=== PATIENT | male | born 1965 | race African-American/Black ===

== ENCOUNTER 2022-05-28 09:31 | Inpatient (IN) | payer MEDICAID ==
[~2022-05-28] VITALS: Ht 182.9 cm; Wt 65.8 kg
[2022-05-28] MEDS ORDERED: DICYCLOMINE 10 MG/5 ML ORAL SYR PO STA (11:11)
[2022-05-28] MEDS ORDERED: ONDANSETRON HCL 4MG/2ML INJ IV STA (11:11)
[2022-05-28] MEDS ORDERED: KETOROLAC 30MG/ML VIAL IV STA (11:11)
[2022-05-28] MEDS ORDERED: VISCOUS LIDOCAINE 2% 15 ML UDC PO STA (11:11)
[2022-05-28] MEDS ORDERED: MAGNESIUM/ALUMINUM HYDROXIDE/SIMETHICONE 30ML UDC PO STA (11:11)
[2022-05-28] MEDS ORDERED: HYDRALAZINE 20MG/ML VIAL IV ONE (14:15)
[2022-05-28] MEDS: SUCRALFATE 1G TABLET PO SCH ×3 (14:29→21:49)
[2022-05-28 14:30] LABS: HEMATOCRIT. 40.3 % (42.0-52.0); HEMOGLOBIN. 13.9 g/dL (14.0-18.0); MEAN CORPUSCULAR HEMOGLOBIN 31.9 pg (28.0-32.0); MEAN CORPUSCULAR VOLUME 92.7 fL (80.0-94.0); MEAN PLATELET VOLUME 8.5 fl (7.4-10.4); PLATELET 199 x1000/uL (130-400); RED BLOOD CELL COUNT 4.34 mill/uL (4.7-6.1); RED CELL DISTRIBUTION WIDTH 13.7 % (11.6-14.6)
[2022-05-28 14:38] LABS: CHLORIDE 107 mEq/L (98-107)
[2022-05-28 15:03] LABS: PLATELET ESTIMATE NORMAL
[2022-05-28 16:28] LABS: CLARITY URINE CLEAR (CLEAR); COLOR URINE YELLOW (YELLOW); KETONES URINE 1+ (NEGATIVE); LEUKOCYTE ESTERASE URINE NEGATIVE (NEGATIVE); NITRITE URINE NEGATIVE (NEGATIVE); OCCULT BLOOD URINE NEGATIVE (NEGATIVE); PH URINE 8.5 (4.5-8.0); PROTEIN URINE TRACE (NEGATIVE); SPECIFIC GRAVITY URINE 1.023 (1.005-1.030)
[2022-05-28] MEDS ORDERED: CLONIDINE 0.1MG TABLET PO PRN (23:15)
[2022-05-28] MEDS ORDERED: ONDANSETRON HCL 4MG/2ML INJ IV PRN (23:15)
[2022-05-28] MEDS ORDERED: ACETAMINOPHEN 325MG TABLET PO PRN (23:15)
[2022-05-28] MEDS ORDERED: DIPHENHYDRAMINE 50MG/ML VIAL IV PRN (23:15)
[2022-05-28] MEDS ORDERED: IPRATROPIUM/ALBUTEROL 0.5-3(2.5)MG/3ML NEB HHN PRN (23:15)
[2022-05-29] VITALS: BP 124/77
[2022-05-29] MEDS: SODIUM CHLORIDE 0.9% 1,000 ML IV SCH ×2 (00:02→14:37)
[2022-05-29] MEDS: KETOROLAC 15MG/ML VIAL IV PRN ×2 (00:03→18:37)
[2022-05-29 01:06] VITALS: BP 149/98
[2022-05-29] MEDS: SUCRALFATE 1G TABLET PO SCH ×4 (06:22→21:58)
[2022-05-29 06:44] LABS: BASOPHILS % 0.6 % (0.0-2.0); EOSINOPHILS % 0.5 % (0.0-5.0); HEMATOCRIT. 38.2 % (42.0-52.0); HEMOGLOBIN. 13.1 g/dL (14.0-18.0); LYMPHOCYTES % 30.1 % (20.0-50.0); MEAN CORPUSCULAR HEMOGLOBIN 32.1 pg (28.0-32.0); MEAN CORPUSCULAR VOLUME 93.3 fL (80.0-94.0); MEAN PLATELET VOLUME 8.6 fl (7.4-10.4); MONOCYTES % 10.8 % (2.0-8.0); PLATELET 186 x1000/uL (130-400); RED CELL DISTRIBUTION WIDTH 13.9 % (11.6-14.6)
[2022-05-29 06:58] LABS: CHLORIDE 104 mEq/L (98-107)
[2022-05-29] MEDS ORDERED: MIRT-118 MT (07:46)
[2022-05-29] MEDS ORDERED: ARIP2TAB3 MT (07:46)
[2022-05-29] MEDS ORDERED: TIMO5DRO32 EACHEYE (07:46)
[2022-05-29] MEDS ORDERED: HYDR25TA MT (07:46)
[2022-05-29 08:00] VITALS: BP 134/85
[2022-05-29 12:00] VITALS: BP 145/90
[2022-05-29 16:00] VITALS: BP 166/96
[2022-05-29 20:00] VITALS: BP 145/88
[2022-05-30] VITALS: BP 133/75
[2022-05-30] MEDS: SODIUM CHLORIDE 0.9% 1,000 ML IV SCH (01:29)
[2022-05-30] MEDS: KETOROLAC 15MG/ML VIAL IV PRN (01:33)
[2022-05-30] MEDS: SUCRALFATE 1G TABLET PO SCH ×2 (06:48→12:09)
[2022-05-30] MEDS ORDERED: POTASSIUM CHLORIDE 20MEQ TABLET SR PO NR (11:15)
[2022-05-30] MEDS ORDERED: SUCR1TAB MT (13:10)
[2022-05-30] MEDS ORDERED: HYDR25TA MT (13:10)
[2022-05-30] MEDS ORDERED: AMLO10TA80 MT (13:10)
[2022-05-30] MEDS ORDERED: ONDA4TAB50 MT (13:10)
[2022-05-30 13:24] VITALS: BP 129/76
== END 2022-05-30 13:37 | disposition home or self-care (01) | DRG 249 ==
LOC: ER 09:31 → 6EST 21:32 → ENRESERV 22:57 → 6EST 05-29 11:37
PROVIDERS: ADMIT Family Medicine Adult Medicine; ATTEND Family Medicine Adult Medicine
DX: R11.2 Nausea with vomiting, unspecified (principal); E11.9 Type 2 diabetes mellitus without complications; F12.90 Cannabis use, unspecified, uncomplicated; E87.6 Hypokalemia; F17.210 Nicotine dependence, cigarettes, uncomplicated; I10 Essential (primary) hypertension; J45.909 Unspecified asthma, uncomplicated
CPT/HCPCS: 36415; 74176; 80053; 81003; 83605; 85025; 93005; 93970; 94640; 99285; J0360; J1885; J2405